=== PATIENT | female | born 2000 | race Caucasian/White ===

== ENCOUNTER 2020-05-24 09:04 | Outpatient (REF) | payer OTHER, SELFPAY ==
--- NOTE | 2020-05-24 09:08 | CT_ITS ---
EXAMINATION: CT HEAD WITHOUT CONTRAST CLINICAL INFORMATION: Syncope and collapse. COMPARISON: None TECHNIQUE: Contiguous axial imaging was performed from the skull base to vertex without intravenous administration of contrast. Coronal and sagittal reformatted images were obtained. This CT examination was performed using dose optimization techniques as appropriate, variously including the following: *Automated exposure control *Adjustment of mA and/or kV according to patient size (this includes techniques or standardized protocols for targeted exams where dose is matched to indication/reason for exam; i.e. extremities or head) *Use of iterative reconstruction technique DLP: 693 mGy-cm FINDINGS: There is no evidence of acute intracranial hemorrhage or territorial infarction. No abnormal mass effect or midline shift is seen. Leon to white matter differentiation is well preserved. No extra-axial fluid collections are identified. The ventricles are normal in size. There is no abnormal attenuation within the brain parenchyma. Routine anteriorly in the posterior fossa, the level the meghan. The osseous structures and soft tissues are normal. The mastoid air cells and visualized portions of the paranasal sinuses are well aerated. CT/CT head/brain wo con IMPRESSION: No acute intracranial pathology.
== END 2020-05-24 09:05 | disposition home or self-care (01) ==
LOC: HO.CT 09:04
PROVIDERS: Visit Provider Psychiatry & Neurology Neurology
DX: R55 Syncope and collapse (principal); S06.0X9A Concussion with loss of consciousness of unspecified duration, initial encounter
CPT/HCPCS: 70450

== ENCOUNTER 2020-10-16 12:20 | Outpatient (REF) | payer OTHER, SELFPAY ==
[2020-10-16 16:07] LABS: COVID-19 Test Negative (Negative); IDNOW Serial# 55D5AD1C
== END 2020-10-16 12:21 | disposition home or self-care (01) ==
LOC: HO.LAB 12:20
PROVIDERS: Visit Provider Internal Medicine
DX: Z20.822 Contact with and (suspected) exposure to COVID-19 (principal)
CPT/HCPCS: 36415; 87635; C9803

== ENCOUNTER 2021-03-29 08:03 | Outpatient (REF) | payer OTHER, SELFPAY ==
[2021-03-29 09:38] LABS: COVID-19 Test Negative (Negative)
== END 2021-03-29 08:04 | disposition home or self-care (01) ==
LOC: HO.LAB 08:03
PROVIDERS: Visit Provider Internal Medicine
DX: Z20.822 Contact with and (suspected) exposure to COVID-19 (principal)
CPT/HCPCS: 36415; 87635; C9803